=== PATIENT | female | born 1995 | race Caucasian/White ===

== ENCOUNTER 2019-06-28 12:45 | Emergency (ER) | payer SELFPAY ==
[~2019-06-28] VITALS: Ht 149.9 cm; Wt 60.0 kg
[2019-06-28 12:50] VITALS: BP 120/76; TEMP 97.8
[2019-06-28 13:29] LABS: COLLECTION METHOD CLEAN CATCH
[2019-06-28 13:36] LABS: BASO % 0.1 % (0.0-2.0); EOS # 0.1 (0.0-0.7); EOS % 0.7 % (0-4.0); GRAN # 5.7 (1.4-6.5); GRAN % 68.7 % (42.2-75.2); HEMATOCRIT 39.3 % (37.0-47.0); LYMPH % 23.6 % (20.0-51.0); MEAN CELL VOLUME 85 fl (80.0-100.0); MEAN CORPUSCULAR HEMOGLOBIN 28 pg (27.0-31.0); MEAN CORPUSCULAR HGB CONC 33 g/dl (33.0-37.0); MONO # 0.5 (0.1-0.6); MONO % 6.2 % (1.7-9.3); PLATELET COUNT 203 K/mm3 (130-400); RED BLOOD COUNT 4.65 M/mm3 (4.10-5.30); REDCELL DISTRIBUTION WIDTH-CV 12.1 % (11.5-14.5)
[2019-06-28 13:40] LABS: PH 6 (5-8); SQUAMOUS EPITHELIAL 0-2 /hpf; URINE APPEARANCE Clear; URINE BACTERIA None Seen /hpf; URINE BILIRUBIN Negative (NEGATIVE); URINE BLOOD 2+ (NEGATIVE); URINE COLOR Yellow; URINE GLUCOSE Negative (NEGATIVE); URINE KETONE 1+ (NEGATIVE); URINE LEUKOCYTE ESTERASE Negative (NEGATIVE); URINE NITRATE Negative (NEGATIVE); URINE PROTEIN(semi-quant) Negative (NEGATIVE); URINE RBC 0-2 /hpf; URINE UROBILINOGEN Negative (NEGATIVE)
[2019-06-28 13:49] LABS: ALANINE AMINOTRANSFERASE 12 U/L (9-52); ALBUMIN 4.7 gm/dL (3.5-5.0); ALKALINE PHOSPHATASE 51 U/L (50-136); ANION GAP 10 mmol/L (7-16); AST,SGOT 21 U/L (15-37); BILIRUBIN,TOTAL 0.3 mg/dL (0.0-1.0); BLOOD UREA NITROGEN 13 mg/dL (7-17); CALCIUM 9.9 mg/dL (8.4-10.2); CARBON DIOXIDE 24 mmol/L (22-30); CHLORIDE 104 mmol/L (98-107); CREATININE, serum 0.48 (0.52-1.25); GLUCOSE 84 mg/dL (74-106); POTASSIUM 3.6 mmol/L (3.4-5.0); SODIUM 139 mmol/L (137-145); TOTAL PROTEIN 8.1 gm/dL (6.4-8.2)
[2019-06-28 13:50] LABS: C-REACTIVE PROTEIN < 0.5 mg/dL (0.0-0.9)
[2019-06-28 15:19] LABS: HCG,QUANTITATIVE 59410 mIU/mL (0-5)
[2019-06-28 17:32] VITALS: PULSE 88
== END 2019-06-28 17:32 | disposition home or self-care (01) ==
LOC: COL.ER 12:45
PROVIDERS: Nurse Practitioner
DX: O20.0 Threatened abortion (principal); Z88.8 Allergy status to other drugs, medicaments and biological substances; Z98.890 Other specified postprocedural states; Z3A.01 Less than 8 weeks gestation of pregnancy

== ENCOUNTER 2020-05-27 13:43 | Emergency (ER) | payer SELFPAY ==
[~2020-05-27] VITALS: Ht 149.9 cm; Wt 71.4 kg
[~2020-05-27 13:43] MED LIST: CEPHALEXIN500 M1 PO; PRENATAL TABLET PO; VITAMIN D 1001000 IU PO; ZOFRAN ODT4 MG PO
[2020-05-27 13:47] VITALS: TEMP 97.7
[2020-05-27 16:51] VITALS: BP 122/74; PULSE 76
== END 2020-05-27 17:00 | disposition home or self-care (01) ==
LOC: COL.ER 13:43
DX: S10.93XA Contusion of unspecified part of neck, initial encounter (principal); S30.0XXA Contusion of lower back and pelvis, initial encounter; M25.511 Pain in right shoulder; R20.0 Anesthesia of skin; W11.XXXA Fall on and from ladder, initial encounter; Y92.59 Other trade areas as the place of occurrence of the external cause; Y99.0 Civilian activity done for income or pay
CPT/HCPCS: J1885

== ENCOUNTER 2020-06-29 14:19 | Outpatient (RCR) | payer OTHER | END 2020-06-30 16:26 | disposition home or self-care (01) | LOC: WSOH 14:19 | DX: L25.5 Unspecified contact dermatitis due to plants, except food (principal); Z90.49 Acquired absence of other specified parts of digestive tract; Y99.0 Civilian activity done for income or pay ==

== ENCOUNTER 2021-03-24 18:07 | Emergency (ER) | payer MEDICAID ==
[~2021-03-24] VITALS: Ht 124.5 cm; Wt 72.7 kg
[2021-03-24 18:29] VITALS: BP 123/76; PULSE 85; TEMP 98.4
[2021-03-24] MEDS ORDERED: NAPROSYN500 MG PO (18:58)
== END 2021-03-24 19:09 | disposition home or self-care (01) ==
LOC: COL.ER 18:07
DX: M79.671 Pain in right foot (principal)

== ENCOUNTER 2021-04-13 11:45 | Emergency (ER) | payer MEDICAID ==
[~2021-04-13] VITALS: Ht 149.9 cm; Wt 72.7 kg
[~2021-04-13 11:45] MED LIST changes: +NAPROSYN500 MG PO
[2021-04-13 11:56] VITALS: BP 122/80; TEMP 98.4
[2021-04-13 12:38] VITALS: PULSE 80
== END 2021-04-13 12:39 | disposition home or self-care (01) ==
LOC: COL.ER 11:45
DX: B34.9 Viral infection, unspecified (principal); Z20.822 Contact with and (suspected) exposure to COVID-19

== ENCOUNTER 2021-08-11 11:12 | Emergency (ER) | payer MEDICAID ==
[~2021-08-11] VITALS: Ht 149.9 cm; Wt 72.7 kg
[2021-08-11 11:26] VITALS: TEMP 97.9
[2021-08-11 12:21] LABS: BASO % 0.1 % (0.0-2.0); EOS # 0.1 K/mm3 (0.0-0.7); EOS % 1.7 % (0.0-4.0); GRAN # 5.1 K/mm3 (1.4-6.5); GRAN % 67.2 % (42.2-75.2); HEMATOCRIT 43.7 % (37.0-47.0); HEMOGLOBIN 13.9 g/dl (12.5-16.0); LYMPH # 1.7 K/mm3 (1.2-3.4); LYMPH % 22.6 % (20.0-51.0); MEAN CELL VOLUME 86 fl (80.0-100.0); MEAN CORPUSCULAR HEMOGLOBIN 27 pg (27-31); MEAN CORPUSCULAR HGB CONC 32 g/dl (33.0-37.0); MEAN PLATELET VOLUME 11.3 fl (7.4-10.4); MONO # 0.6 K/mm3 (0.1-0.6); MONO % 7.7 % (1.7-9.3); PLATELET COUNT 266 K/mm3 (130-400); RED BLOOD COUNT 5.07 M/mm3 (4.10-5.30); REDCELL DISTRIBUTION WIDTH-CV 12.3 % (11.5-14.5)
[2021-08-11 12:34] LABS: BILIRUBIN,TOTAL 0.5 mg/dL (0.2-1.2); CALCIUM 8.8 mg/dL (8.4-10.2); CREATININE, serum 0.71 mg/dL (0.57-1.11); POTASSIUM 4.4 mmol/L (3.5-4.5); TOTAL PROTEIN 7.7 gm/dL (6.2-8.1)
[2021-08-11 13:01] LABS: COLLECTION METHOD CLEAN CATCH
[2021-08-11 13:09] LABS: MUCOUS Present (NOT PRESENT); PH 5 (5-8); URINE APPEARANCE Hazy (CLEAR/HAZY); URINE BACTERIA None Seen /hpf (NONE SEEN); URINE BILIRUBIN Negative (NEGATIVE); URINE BLOOD Negative (NEGATIVE); URINE COLOR Yellow (YELLOW); URINE GLUCOSE Negative (NEGATIVE); URINE KETONE Negative (NEGATIVE); URINE LEUKOCYTE ESTERASE Negative (NEGATIVE); URINE NITRATE Negative (NEGATIVE); URINE PROTEIN(semi-quant) Negative (NEGATIVE); URINE RBC 0-2 /hpf (0-2); URINE UROBILINOGEN Negative (NEGATIVE)
[2021-08-11 13:39] VITALS: BP 101/80; PULSE 68
[2021-08-11] MEDS ORDERED: PEPCID 20MG TAB20 MG PO (13:41)
[2021-08-11] MEDS ORDERED: ZOFRAN ODT4 MG PO (13:41)
== END 2021-08-11 14:00 | disposition home or self-care (01) ==
LOC: COL.ER 11:12
PROVIDERS: Emergency Medicine
DX: U07.1 COVID-19 (principal); Z73.0 Burn-out
CPT/HCPCS: J2405; J7120

== ENCOUNTER 2022-09-09 19:54 | Emergency (ER) | payer MEDICAID ==
[~2022-09-09] VITALS: Ht 149.9 cm; Wt 68.2 kg
[~2022-09-09 19:54] MED LIST changes: +PEPCID 20MG TAB20 MG PO
[2022-09-09 20:46] VITALS: BP 125/80; PULSE 93; TEMP 98.7
== END 2022-09-09 20:43 | disposition home or self-care (01) ==
LOC: COL.ER 19:54
DX: U07.1 COVID-19 (principal); R06.02 Shortness of breath; R42 Dizziness and giddiness; R05.9 Cough, unspecified

== ENCOUNTER 2023-08-31 16:45 | Emergency (ER) | payer BC ==
[~2023-08-31] VITALS: Ht 149.9 cm; Wt 75.0 kg
[2023-08-31 17:30] VITALS: TEMP 98.3
[2023-08-31 20:18] LABS: BASO % 0.2 % (0.0-2.0); EOS # 0.1 K/mm3 (0.0-0.7); EOS % 0.7 % (0.0-4.0); GRAN # 10.2 K/mm3 (1.4-6.5); GRAN % 81.3 % (42.2-75.2); HEMATOCRIT 38.5 % (37.0-47.0); HEMOGLOBIN 12.9 g/dl (12.5-16.0); LYMPH # 1.5 K/mm3 (1.2-3.4); LYMPH % 11.6 % (20.0-51.0); MEAN CELL VOLUME 84 fl (80.0-100.0); MEAN CORPUSCULAR HEMOGLOBIN 28 pg (27-31); MEAN CORPUSCULAR HGB CONC 34 g/dl (33.0-37.0); MEAN PLATELET VOLUME 11.4 fl (7.4-10.4); MONO # 0.7 K/mm3 (0.1-0.6); MONO % 5.7 % (1.7-9.3); PLATELET COUNT 235 K/mm3 (130-400); RED BLOOD COUNT 4.59 M/mm3 (4.10-5.30); REDCELL DISTRIBUTION WIDTH-CV 12.6 % (11.5-14.5)
[2023-08-31] MEDS ORDERED: LORazepam 1 MG TAB PO ONE (20:30)
[2023-08-31 20:34] LABS: ALBUMIN 4.2 gm/dL (3.5-5.0); BILIRUBIN,TOTAL 0.7 mg/dL (0.2-1.2); CALCIUM 9.6 mg/dL (8.4-10.2); CREATININE, serum 0.68 mg/dL (0.57-1.11); POTASSIUM 3.7 mmol/L (3.5-4.5); TOTAL PROTEIN 7.3 gm/dL (6.2-8.1)
[2023-08-31 21:19] VITALS: BP 127/74; PULSE 85
== END 2023-08-31 21:19 | disposition home or self-care (01) ==
LOC: COL.ER 16:45
PROVIDERS: Physician Assistant
DX: R07.9 Chest pain, unspecified (principal); F41.9 Anxiety disorder, unspecified; F32.A Depression, unspecified; F17.290 Nicotine dependence, other tobacco product, uncomplicated; Z79.899 Other long term (current) drug therapy

== ENCOUNTER 2024-06-10 22:00 | Emergency (ER) | payer BC ==
[~2024-06-10] VITALS: Ht 149.9 cm; Wt 74.5 kg
[2024-06-10 22:04] VITALS: TEMP 98.8
[2024-06-10] MEDS ORDERED: Ondansetron 4 MG/2 ML VIAL IV ONE (23:30)
[2024-06-10] MEDS ORDERED: NS 1,000 ML IV ONE (23:30)
[2024-06-10 23:42] LABS: BASO % 0.2 % (0.0-2.0); EOS # 0.6 K/mm3 (0.0-0.7); EOS % 4.3 % (0.0-4.0); GRAN # 10.2 K/mm3 (1.4-6.5); GRAN % 78.1 % (42.2-75.2); HEMATOCRIT 40.8 % (37.0-47.0); HEMOGLOBIN 13.6 g/dl (12.5-16.0); LYMPH # 1.3 K/mm3 (1.2-3.4); LYMPH % 9.9 % (20.0-51.0); MEAN CELL VOLUME 85 fl (80.0-100.0); MEAN CORPUSCULAR HEMOGLOBIN 28 pg (27-31); MEAN CORPUSCULAR HGB CONC 33 g/dl (33.0-37.0); MEAN PLATELET VOLUME 10.9 fl (7.4-10.4); MONO # 0.9 K/mm3 (0.1-0.6); PLATELET COUNT 260 K/mm3 (130-400); RED BLOOD COUNT 4.81 M/mm3 (4.10-5.30); REDCELL DISTRIBUTION WIDTH-CV 12.6 % (11.5-14.5)
[2024-06-10 23:57] LABS: ALBUMIN 4.2 g/dL (3.5-5.0); BILIRUBIN,TOTAL 0.7 mg/dL (0.2-1.2); CREATININE, serum 0.72 mg/dL (0.57-1.11); POTASSIUM 3.9 mEq/L (3.5-4.5); TOTAL PROTEIN 7.1 g/dl (6.2-8.1)
[2024-06-11 00:30] LABS: COLLECTION METHOD CLEAN CATCH
[2024-06-11 00:45] LABS: PH 5.5 (5.0-8.5); URINE APPEARANCE CLEAR (CLEAR/HAZY); URINE BLOOD NEGATIVE (NEGATIVE); URINE COLOR YELLOW (YELLOW); URINE GLUCOSE NEGATIVE (NEGATIVE); URINE KETONE 1+ (NEGATIVE); URINE NITRATE NEGATIVE (NEGATIVE); URINE PROTEIN(semi-quant) TRACE (NEGATIVE); URINE UROBILINOGEN 0.2 E.U/dL (0.2-1.0)
[2024-06-11] MEDS ORDERED: Iohexol 300 - 100 ML VIAL IV ONE (00:47)
[2024-06-11] MEDS ORDERED: NS 100 ML IV ONE (00:47)
[2024-06-11] MEDS ORDERED: Famotidine 20 MG TAB PO ONE (01:45)
[2024-06-11] MEDS ORDERED: Home Ondansetron ODT 4 MG #2 ODT/PACK PO ONE (01:45)
[2024-06-11] MEDS ORDERED: Mag/Al Hydrox/Simeth Susp 30 ML CUP PO ONE (01:45)
[2024-06-11 02:00] VITALS: BP 115/69; PULSE 99
== END 2024-06-11 02:00 | disposition home or self-care (01) ==
LOC: COL.ER 22:00
PROVIDERS: Nurse Practitioner Primary Care
DX: K52.9 Noninfective gastroenteritis and colitis, unspecified (principal); N83.209 Unspecified ovarian cyst, unspecified side
CPT/HCPCS: J2405; J7030; Q9967